=== PATIENT | female | born 1995 | race Caucasian/White ===

== ENCOUNTER 2016-07-14 21:32 | Emergency (ER) | payer OTHER ==
[~2016-07-14 21:32] MED LIST: FIORICET 50-301 EACH PO; LEVOTHYROXIN0.075 MG PO
--- NOTE | 2016-07-14 23:19 | ED CARDIAC/CP/PALPITATIONS ---
History of Present Illness General Chief Complaint: General Adult Stated Complaint: PT HAS CHEST PAIN TODAY FOR 1MONTH AND HEADACHE Source: patient Exam Limitations: no limitations Vital Signs & Intake/Output Vital Signs & Intake/Output Vital Signs Date Time Temp Pulse Resp B/P Pulse O2 O2 Flow FiO2 Ox Delivery Rate 07/14 2351 90 20 132/77 98 Room Air 07/14 2300 Room Air 07/14 2143 98.5 93 16 142/84 98 Room Air Room Air Allergies Coded Allergies: NO KNOWN ALLERGIES (07/14/16) Reconcile Medications Butalb/Acetaminophen/Caffeine (Fioricet 50-300-40 MG Capsule) 50 MG-300 MG-40 MG CAPSULE 1-2 CAP PO Q6P PRN headache Ibuprofen 600 MG TABLET 1 TAB PO TID PRN pain with food Levothyroxine Sodium 0.075 MG TAB 0.075 MG PO DAILY AC THYROID (Reported) Levothyroxine Sodium 88 MCG TABLET 1 TAB PO DAILY THYROID (Reported) Triage Note: PT TO TRIAGE WITH LEFT SIDED CHEST PAIN THAT HAS BEEN INTERMITTENT FOR 1 MONTH. PT DENIES CP AT THIS TIME. STATES THERE ARE NO PRECIPITATING FACTORS TO PAIN. PT STATES SHE HAS BEEN TIRED FOR THE MONTH ALSO. PT DENIES SOB. SHE STATES HE WAS EVALUATED FOR HEADACHES IN [facility] AND THEY HAVE BEEN PERSIS TENT SINCE Triage Nurses Notes Reviewed? yes Onset: Gradual Duration: week(s):, waxing and waning Timing: recent history Quality/Severity: mild Location: left-sided chest wall, left shoulder Radiation: no radiation Activities at Onset: "eyelids my baby with my left arm." Prior Chest Pain/Card Workup: no prior chest pain Modifying Factors: Worsens With: movement, palpation. Associated Symptoms: left-sided chest wall pain : No Patient currently breastfeeds: Yes HPI: 20-year-old woman presents with 4-5 weeks of left-sided chest wall pain left shoulder girdle pain, worse with movement and palpation. She states that she carries her baby with her left hand, who was born last fall. She has no diaphoresis shortness of breath, increased work of breathing, wheezing, radiation. She is otherwise well. Past History Travel History Traveled to [place] past 21 day No Medical History Any Pertinent Medical History? 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 No Review of Systems Review of Systems Constitutional: Reports: no symptoms. EENTM: Reports: no symptoms. Respiratory: Reports: no symptoms. Cardiovascular: Reports: no symptoms. GI: Reports: no symptoms. Genitourinary: Reports: no symptoms. Musculoskeletal: Reports: no symptoms. Skin: Reports: no symptoms. Neurological/Psychological: Reports: no symptoms. Hematologic/Endocrine: Reports: no symptoms. Immunologic/Allergic: Reports: no symptoms. All Other Systems: Reviewed and Negative Physical Exam Physical Exam General Appearance: well developed/nourished, mild distress Head: atraumatic, normal appearance Eyes: Bilateral: normal appearance. Ears, Nose, Throat: normal pharynx, normal ENT inspection Neck: normal inspection, supple, full range of motion Respiratory: normal breath sounds, no respiratory distress, quiet respiration, lungs clear, parasternal chest wall tenderness to palpation, left shoulder musculature tenderness to palpation Cardiovascular: regular rate/rhythm Gastrointestinal: normal bowel sounds, soft, non-tender, no organomegaly Back: normal inspection, normal range of motion Extremities: normal inspection Neurologic/Psych: no motor/sensory deficits, awake, alert, oriented x 3 Skin: intact, normal color, warm/dry Core Measures ACS in differential dx? No Severe Sepsis Present: No Septic Shock Present: No Progress Differential Diagnosis: costochondritis, musculoskeletal pain, muscle spasm Plan of Care: Orders Procedure Date/time Status EKG 07/14 2143 Active Initial ED EKG: normal axis, normal intervals, normal p-waves, normal QRS complex, normal sinus rhythm Comments: Perc negative... I doubt PE Departure Departure Disposition: HOME OR SELF CARE Condition: Stable Clinical Impression Primary Impression: Chest wall pain Referrals: PATIENT HAS NO PRIMARY CARE DR (PCP/Family) Departure Forms: Customer Survey General Discharge Information Prescriptions: Current Visit Scripts Ibuprofen 1 TAB PO TID PRN pain #30 TAB with food Comments Patient with several weeks of symptoms. Her pain is reproducible to palpation. The likely etiology is repetitive motion with lifting her infant. I advocated end-stage and supportive measures. I counseled close follow-up if not feeling better within the next 24 hours. Critical Care Note Critical Care Note Critical Care Time: non-applicable
[2016-07-14] MEDS ORDERED: IBUPROFEN600 M1 PO (23:33)
[2016-07-14] MEDS ORDERED: LEVOTHYROXINE88 MCG PO (23:50)
[2016-07-14 23:51] VITALS: BP 132/77
== END 2016-07-14 23:52 ==
LOC: ERH 21:32
DX: R07.89 Other chest pain (principal)
CPT/HCPCS: 93005; 93010

== ENCOUNTER 2018-01-31 18:19 | Emergency (ER) | payer OTHER ==
[~2018-01-31] VITALS: Ht 177.8 cm; Wt 130.2 kg
[~2018-01-31 18:19] MED LIST changes: +IBUPROFEN600 M1 PO; +LEVOTHYROXINE88 MCG PO
--- NOTE | 2018-01-31 19:49 | ED GENERAL ADULT ---
See Addendum History of Present Illness General Chief Complaint: General Adult Stated Complaint: LEG/CALF PAIN, BURNING SENSATION IN LEGS,CP Source: patient, family, old records Exam Limitations: no limitations Allergies Coded Allergies: No Known Allergies (01/29/18) Reconcile Medications Butalb/Acetaminophen/Caffeine (Fioricet 50-300-40 MG Capsule) 50 MG-300 MG-40 MG CAPSULE 1-2 CAP PO Q6P PRN headache Ibuprofen 600 MG TABLET 1 TAB PO TID PRN pain with food Levothyroxine Sodium 0.075 MG TAB 0.075 MG PO DAILY AC THYROID (Reported) Levothyroxine Sodium 88 MCG TABLET 1 TAB PO DAILY THYROID (Reported) Triage Note: PT STATES SHE HAD A PCP APPT. AND HER TOES WERE GETTING COLD AND HER KNEES WERE PURPLE. PT STATES HER APPT. WAS WITH HER OBGYN. PT THEN WENT HOME UNDER THE BLANKETS TRYING TO GET WARM AND THEN HER LEGS FELT VERY WARM LIKE ON FIRE FROM THE KNEES DOWN. PT STATES SHE HAS BEEN IN BED A LOT LATELY BECAUSE SHE HAS BEEN HAVING THYROID PROBLEMS. Triage Nurses Notes Reviewed? yes : No Patient currently breastfeeds: No HPI: 22-year-old woman seen for evaluation of multiple complaints. She was seen in the [facility] ED on Tuesday for reported left facial numbness where she was evaluated and sent home with instruction to follow-up with her PCP. She was seen in the [facility] ED on 01/29/18 for evaluation of a headache for which she was treated with Toradol with good relief and discharged home with instruction to follow-up with her PCP. She was seen by her machine stapler and SUPERVISOR PICKING [employer]W earlier today whom both ordered labs with planned further evaluation including a transvaginal ultrasound tomorrow and a thyroid nodule biopsy next week. Presently patient states that she has been in bed for days and is profoundly weak and "cannot do anything". She states that her toes were cold and discolored this morning but later her lower extremities were warm. Additionally she admits to having excessive menstrual bleeding for approximately 1 year for which she is undergoing evaluation. Collateral information was obtained from patient's mother who is present during the interview who reports that multiple first-degree family members have had various cancers including ovarian and breast. (Bereket JIMENEZ,Filiberto) Vital Signs & Intake/Output Vital Signs & Intake/Output Vital Signs Date Time Temp Pulse Resp B/P B/P Pulse O2 O2 Flow FiO2 Mean Ox Delivery Rate 01/31 2200 98.1 56 20 116/85 96 Room Air 01/31 2156 98 Room Air 01/31 1838 97.3 72 16 120/82 97 Room Air (Carolin JIMENEZ,Ramiro Cowart) Past History Travel History Traveled to [place] past 21 day No Medical History Any Pertinent Medical History? 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 No (Filiberto Cuba MD) Review of Systems Review of Systems Constitutional: Reports: see HPI. (Filiberto Cuba MD) Physical Exam Physical Exam General Appearance: well developed/nourished, no apparent distress, alert, anxious Comments: General - well developed, morbidly obese young woman in no acute distress HEENT - NCAT, PERRL, EOMI, anicteric sclera Neck- Supple, no JVD/HJR, no bruits, trachea midline Cardio/chest S1, S2 w/o murmurs/gallops/rubs; regular rate and rhythm, presence of chest hair Resp - Clear to auscultation bilaterally GI - Soft, nontender, nondistended, bowel sounds present Neuro - Awake and alert, CN II - XII grossly intact Extremities - No edema, pulses intact Core Measures ACS in differential dx? No CVA/TIA Diagnosis: No Sepsis Present: No Sepsis Focused Exam Completed? No (Filiberto Cuba MD) Progress Differential Diagnoses I considered the following diagnoses in my evaluation of the patient: Fibromyalgia, malingering, PCOS, endometriosis, hypothyroidism, thyroid nodule Plan of Care: Orders Procedure Date/time Status EKG 01/31 1820 Active Initial ED EKG: none Comments: Presently patient reports that she feels profoundly fatigued and is worried about her increased menstrual bleeding that has been present for approximately 1 year. Vital signs remain within normal limits. Physical examination demonstrates a normal cardiopulmonary examination; patient does have evidence of obesity and hirsutism on exam. Museum Host/Hostess/SUPERVISOR [employer] ordered today were reviewed and demonstrate a normal CBC and serum chemistry with an improved TSH of about 10 from 22. Transvaginal ultrasound was ordered per patient request as it was scheduled as an outpatient tomorrow that demonstrated no acute findings. Patient is discharged home with instruction to follow-up with her PCP, machine stapler, and SUPERVISOR [employer] for further evaluation. (Filiberto Cuba MD) Departure Departure Disposition: HOME OR SELF CARE Condition: Stable Clinical Impression Primary Impression: Menstrual bleeding problem Referrals: Compa Todd MD (PCP/Family) Additional Instructions: Please follow-up with your PCP, machine stapler, and SUPERVISOR [employer]. Call 911 or return to the ED should her symptoms become worse. Departure Forms: Customer Survey General Discharge Information (Filiberto Cuba MD) Resident Co-Sign Statement Statement: ED Attending supervision documentation- [] I saw and evaluated the patient. I have also reviewed all the pertinent lab results and diagnostic results. I agree with the findings and the plan of care as documented in the Resident's documentation. [X] I have reviewed the ED Record and agree with the Resident's documentation. [] Additions or exceptions (if any) to the Resident's note and plan are summarized below: [] (Carolin JIMENEZ,Ramiro Cowart) Critical Care Note Critical Care Note Critical Care Time: non-applicable (Filiberto Cuba MD)
--- NOTE | 2018-01-31 21:23 | ULTRASOUND REPORT ---
EXAM: Pelvic Ultrasound CLINICAL INDICATION: 21-year-old female with abdominal pain and hirsutism. Fatigue and malaise. COMPARISON: Pelvic ultrasound 01/06/2012 TECHNIQUE: The pelvis was evaluated using transabdominal and transvaginal imaging. Color Doppler imaging and spectral analysis of the bilateral ovaries was also performed. Examination limited secondary to patient body habitus and overlying bowel. FINDINGS: Retroverted uterus measures approximately 6.3 x 4.0 x 4.3 cm in longitudinal by AP by transverse dimension. The endometrial stripe measures 1.2 cm. The cervix measures approximately 3.5 cm in length. Small nabothian cyst is present. The ovaries are poorly visualized. The left ovary measures approximately 2.9 x 2.9 x 2.9 cm . The right ovary measures approximately 3.4 x 3.5 x 2.5 cm . Small follicles are present within each ovary. Spectral analysis reveals normal arterial and venous waveforms in the bilateral ovaries. There are no abnormal adnexal masses. There is no free fluid in the pelvis. IMPRESSION: Unremarkable pelvic ultrasound. The ovaries are not optimally visualized, however, there is no gross abnormality of either ovary.
[2018-01-31 22:00] VITALS: BP 116/85
== END 2018-01-31 21:58 ==
LOC: ERH 18:19
DX: N92.0 Excessive and frequent menstruation with regular cycle (principal); E03.9 Hypothyroidism, unspecified; R53.1 Weakness
CPT/HCPCS: 93005; 93010

== ENCOUNTER 2018-02-02 13:49 | Emergency (ER) | payer OTHER ==
[2018-02-02] MEDS ORDERED: LEVOXYL50 MCG PO (17:10)
[2018-02-02] MEDS ORDERED: VITAMIN D1000 UNIT PO (17:10)
[2018-02-02 17:23] VITALS: BP 132/80
[2018-02-02] MEDS ORDERED: DROSPIRENONE-E1 EACH PO (17:35)
[2018-02-02] MEDS ORDERED: PHENERGAN12.5 M2 RC (17:36)
--- NOTE | 2018-02-02 18:44 | ED GENERAL ADULT ---
History of Present Illness General Chief Complaint: General Adult Stated Complaint: TAILBONE PAIN, NUMBNESS AND PAIN BILATERAL LE Source: patient, old records Exam Limitations: no limitations Vital Signs & Intake/Output Vital Signs & Intake/Output Vital Signs Date Time Temp Pulse Resp B/P B/P Pulse O2 O2 Flow FiO2 Mean Ox Delivery Rate 02/02 1723 86 18 132/80 99 02/02 1645 Room Air 02/02 1407 97.6 72 18 129/82 98 Room Air Allergies Coded Allergies: No Known Allergies (01/29/18) Reconcile Medications Cholecalciferol (Vitamin D3) (Vitamin D) (Unknown Strength) TABLET (Unknown Dose) PO DAILY SUPPLEMENT (Reported) Levothyroxine Sodium (Levoxyl) 50 MCG TABLET 1 TAB PO DAILY THYROID (Reported ) Triage Note: 22 YO FEMALE TO [facility] FOR EVAL OF TAILBONE PAIN AND R LEG PAIN, KEIRA INJURY. STATES OVER THE LAST WEEK WHEN SHE LAYS DOWN SHE HAS PAIN TO L SIDE OF CHEST. DAMON CHEST PAIN AT THIS TIME. Triage Nurses Notes Reviewed? yes : No Patient currently breastfeeds: No HPI: 22-year-old woman seen for evaluation of tailbone pain numbness right lower extremity. She has been seen multiple times in ED for various complaints. Tailbone pain occured last night when she was laying on her right side, which she normally doesn't do. Pain radiating down her leg occured on the back side of her leg. Past History Travel History Traveled to [place] past 21 day No Medical History Any Pertinent Medical History? 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 No Review of Systems Review of Systems Constitutional: Reports: no symptoms. EENTM: Reports: no symptoms. Respiratory: Reports: no symptoms. Cardiovascular: Reports: no symptoms. GI: Reports: no symptoms. Genitourinary: Reports: no symptoms. Musculoskeletal: Reports: no symptoms, back pain. Skin: Reports: no symptoms. Neurological/Psychological: Reports: no symptoms, paresthesia. Hematologic/Endocrine: Reports: no symptoms. Immunologic/Allergic: Reports: no symptoms. All Other Systems: Reviewed and Negative Physical Exam Physical Exam General Appearance: well developed/nourished, no apparent distress Neck: normal inspection, no midline tenderness Respiratory: lungs clear Cardiovascular: regular rate/rhythm, normal peripheral pulses Gastrointestinal: soft, non-tender Extremities: normal inspection, normal capillary refill, normal range of motion, no edema, Neg straight leg test. Skin: intact, normal color Core Measures ACS in differential dx? No CVA/TIA Diagnosis: No Sepsis Present: No Sepsis Focused Exam Completed? No Progress Differential Diagnoses I considered the following diagnoses in my evaluation of the patient: Musculoskeletal versus malingering versus somatization versus DVT. Plan of Care: Orders Procedure Date/time Status URINE 02/02 1354 Complete URINALYSIS 02/02 1354 Complete Laboratory Tests 02/02/18 1642: Urinalysis LIGHT H, Urine Color BLDY H, Urine Clarity CLDY H, Urine pH 6.0, Ur Specific Willard 1.025, Urine Protein 30 H, Urine Ketones NEG, Urine Nitrite NEG, Urine Bilirubin NEG, Urine Urobilinogen 0.2, Ur Leukocyte Esterase SMALL H , Ur Microscopic SEDIMENT EXAMINED, Urine RBC 50-75 H, Urine WBC 5-10 H, Ur Epithelial Cells FEW, Urine Bacteria FEW H, Urine Hemoglobin LARGE H, Urine Glucose NEG, Urine Test NEGATIVE Initial ED EKG: none Departure Departure Disposition: HOME OR SELF CARE Condition: Stable Clinical Impression Primary Impression: Leg pain, right Referrals: Peyton JIMENEZ,Compa Collins (PCP/Family) Departure Forms: Customer Survey General Discharge Information Comments Use [id number] anti-inflammatories. Critical Care Note Critical Care Note Critical Care Time: non-applicable
--- NOTE | 2018-02-02 19:26 | ULTRASOUND REPORT ---
EXAMINATION: US TRIPLEX OF LOWER EXTREMITIES, BILATERAL CLINICAL INFORMATION: Cramping right lower extremity. COMPARISON: None TECHNIQUE: Color-flow triplex imaging with spectral analysis and compression Doppler were performed on the lower extremities. FINDINGS: Respiratory variation, normal compression and augmented flow are noted throughout the lower extremities. The visualized common femoral vein, superficial femoral vein, profunda femoral vein, popliteal vein and midcalf peroneal and posterior tibial venous segments show no evidence of deep venous thrombosis. There is no Craig's cyst. IMPRESSION: No evidence of deep venous thrombosis involving the bilateral lower extremities.
== END 2018-02-02 20:01 ==
LOC: ERH 13:49
DX: M79.604 Pain in right leg (principal); M53.3 Sacrococcygeal disorders, not elsewhere classified; R20.0 Anesthesia of skin
CPT/HCPCS: 81001; 81025; 93970